=== PATIENT | male | born 1975 | race Caucasian/White ===

== ENCOUNTER 2019-03-11 08:47 | Emergency (ER) | payer SELFPAY ==
[~2019-03-11] VITALS: Ht 157.5 cm; Wt 63.0 kg
[2019-03-11] MEDS ORDERED: FLUORESCEIN SODIUM 1MG/STRIP OP ONE (09:30)
[2019-03-11] MEDS ORDERED: TETRACAINE 0.5% OPHTH DROPS 4ML OP ONE (09:30)
[2019-03-11 10:36] VITALS: BP 152/80
== END 2019-03-11 10:36 | disposition home or self-care (01) ==
LOC: ER 08:47
DX: S05.02XA Injury of conjunctiva and corneal abrasion without foreign body, left eye, initial encounter (principal); W22.8XXA Striking against or struck by other objects, initial encounter; Y93.H2 Activity, gardening and landscaping; Y92.017 Garden or yard in single-family (private) house as the place of occurrence of the external cause
CPT/HCPCS: 99283